=== PATIENT | male | born 1990 | race Caucasian/White ===

== ENCOUNTER 2017-02-20 14:09 | Emergency (ER) | payer OTHER ==
[~2017-02-20] VITALS: Ht 180.3 cm; Wt 99.8 kg
[2017-02-20] MEDS ORDERED: TETANUS,DIPTH,PERTUSS P/F (BOOSTRIX) 0.5 ML VIAL IM ONE ×2 (14:12→14:30)
[2017-02-20] MEDS ORDERED: LIDOCAINE 2% 20 ML (XYLOCAINE) VIAL ONE (14:12)
[2017-02-20] MEDS ORDERED: LIDOCAINE 2% 20 ML (XYLOCAINE) VIAL INJ ONE (14:30)
--- NOTE | 2017-02-20 14:33 | ED Upper Extremity ---
General Chief Complaint: Laceration Stated Complaint: R WRIST LACERATION Nursing Triage Note: pt has lac to l inner wrist from glass off garage door. Nursing Sepsis Screen: No Definite Risk Source: patient Exam Limitations: no limitations History of Present Illness Time seen by provider: 14:28 Initial Comments To ER with a laceration to the volar side of the left wrist after pushing on the glass piece of his garage door to open the door. The glass broke. Tetanus is not up-to-date. He states that he had to wrap this in a towel and get here within 30 minutes so that he didn't lose too much blood. Onset: just prior to arrival Severity: moderate Pain/Injury Location: left forearm Allergies and Home Medications Allergies Coded Allergies: No Known Drug Allergies (Unverified , 02/20/17) Constitutional: see HPI EENTM: see HPI Respiratory: no symptoms reported Cardiovascular: no symptoms reported Genitourinary: no symptoms reported Musculoskeletal: see HPI Skin: see HPI Past Sufkoom-Ihoyut-Lotsqd Hx Patient Social History Alcohol Use: Occasionally Uses Recreational Drug Use: No Smoking Status: Never a Smoker 2nd Hand Smoke Exposure: No Recent Foreign Travel: No Contact w/Someone Who Travel: No Recent Infectious Disease Expo: No Recent Hopitalizations: No Immunizations Up To Date Tetanus Booster (TDap): Unknown Seasonal Allergies Seasonal Allergies: No Physical Exam Vital Signs Vital Sign - Last 12Hours 02/20/17 14:16 Temp 98.2 Pulse 68 Resp 16 B/P (MAP) 134/84 Pulse Ox 98 O2 Delivery Room Air Capillary Refill : Less Than 3 Seconds General Appearance: WD/WN, no apparent distress HEENT: PERRL/EOMI, normal ENT inspection Neck: non-tender, full range of motion Respiratory: no respiratory distress, no accessory muscle use Gastrointestinal: normal bowel sounds, non tender, soft Shoulder: normal inspection, non-tender Elbow/Forearm: Left, pain Wrist: Yes pain (there are several small lacerations to the volar side of the wrist consistent with his story. Only 2 of these require suture. No evidence of flexor tendon injury. Distally he is neurovascularly intact, the radial and ulnar pulses are intact and both radial and ulnar arteries are lateral to the location of these lacerations. Bleeding is easily controlled with direct pressure.) Neurologic/Psychiatric: alert, normal mood/affect, oriented x 3 Skin: normal color, warm/dry Comments Patient is very anxious Laceration Repair : Wound Location: Upper Extremities Wound Length (cm): 1 Wound's Depth, Shape: sub Q Wound Explored: clean Anesthesia: 1% Lidocaine Suture: Prolene Suture Size: 5-0 Number of Sutures: 4 Layer Closure?: 1 Number Deep Layer Sutures: 0 Progress Anesthetized with 1 percent lidocaine without epinephrine. Irrigated/scrubbed with chlorhexidine/saline solution. No foreign bodies identified within the wounds. No visualized tendon injury. He maintains full ability to flex at the wrist and each individual finger which would suggest no flexor tendon injury. Was closed using 4 sutures size 5-0 Prolene. Covered with gauze. Progress/Results/Core Measures Results/Orders My Orders Orders - JESSIKA CHACKO APRN Dipht,Pertuss(Acell),Tet Adult (Boostrix (02/20/17 14:30) Lidocaine 2% Injection 20 Ml (Xylocaine (02/20/17 14:30) Medications Given in ED Current Medications Medications Dose Ordered Sig/Miguel Route Start Time Stop Time Status Last Admin Dose Admin Diphtheria/ Tetanus/Acell Pertussis 0.5 ml STK-MED ONCE IM 02/20/17 14:12 02/20/17 14:16 DC 02/20/17 14:15 0.5 ML Lidocaine HCl 20 ml STK-MED ONCE .ROUTE 02/20/17 14:12 02/20/17 14:16 DC 02/20/17 14:15 20 ML Vital Signs/I&O Vital Sign - Last 12Hours 02/20/17 14:16 Temp 98.2 Pulse 68 Resp 16 B/P (MAP) 134/84 Pulse Ox 98 O2 Delivery Room Air Blood Pressure Mean: 101 Departure Impression Impression: Primary Impression: Wrist laceration Disposition: HOME, SELF-CARE Condition: Improved Departure-Patient Inst. Decision time for Depature: 14:31 Referrals: [facility] (PCP) Primary Care Physician Patient Instructions: Laceration Repair With Stitches (DC) Add. Discharge Instructions: 1. Keep the dressing in place until tonight. Then you may replace it with a simple Band-Aid 2. Return to ER in 7-10 days at your convenience to have the stitches removed 3. Apply triple antibiotic ointment once daily and wash the wound gently with soap and water once daily. You may get this wet starting tonight. However, do not soak it in water such as a hot tub or swimming pool or bathtub. Showering and washing it under the sink is fine. All discharge instructions reviewed with patient and/or family. Voiced understanding. JESSIKA CHACKO APRN Feb 20, 2017 14:33
[2017-02-20 14:44] VITALS: BP 134/84
== END 2017-02-20 14:44 | disposition home or self-care (01) ==
LOC: ER 14:13
DX: S61.512A Laceration without foreign body of left wrist, initial encounter (principal); W25.XXXA Contact with sharp glass, initial encounter; Y92.59 Other trade areas as the place of occurrence of the external cause
CPT/HCPCS: 12001; 90715

== ENCOUNTER 2017-02-27 09:09 | Emergency (ER) | payer OTHER ==
[~2017-02-27] VITALS: Ht 177.8 cm; Wt 95.3 kg
[2017-02-27 09:29] VITALS: BP 128/70
== END 2017-02-27 09:26 | disposition home or self-care (01) ==
LOC: EDUNIT# 09:09 → ER 09:10
DX: S61.512D Laceration without foreign body of left wrist, subsequent encounter (principal)